=== PATIENT | male | born 2000 | race Hispanic/Latino ===

== ENCOUNTER → 2021-03-27 13:59 | Outpatient (CLI) | payer OTHER, MEDICAID, SELFPAY ==
--- NOTE | 2021-03-27 14:01 | DI.RAD.S_ITS ---
PROCEDURE: XR WRIST LT MIN 3V INDICATIONS: Wrist pain TECHNIQUE: 4 views of the wrist were acquired. COMPARISON: None. FINDINGS: Bones: No fractures. In the lateral view the ulna is displaced dorsally relative to the radius which could be due to dislocation versus obliquity at time of image acquisition.. No suspicious bony lesions. Scaphoid view: Scaphoid is intact. Soft tissues: No suspicious soft tissue calcifications. IMPRESSION: Possible distal radioulnar joint dislocation. Recommend correlation with clinical findings. Dictated by: Latoya Benavidez MD, PhD on 03/27/2021 at 13:23 Approved by: Latoya Benavidez MD, PhD on 03/27/2021 at 13:25
== END ==
PROVIDERS: Referring Provider Nurse Practitioner Family; Visit Provider Nurse Practitioner Family
DX: M25.532 Pain in left wrist (principal)
CPT/HCPCS: 73110

== ENCOUNTER 2023-10-09 16:51 | Emergency (ER) | payer OTHER, MEDICAID, SELFPAY ==
[2023-10-09 17:07] VITALS: BP 109/66; PULSE 87; RESP 16; TEMP 36.9; O2SAT 100; BMI 22.3
--- NOTE | 2023-10-09 17:23 | DI.US.S_ITS ---
PROCEDURE: US SCROTUM INDICATIONS: left testicular pain TECHNIQUE: Real-time scanning was performed of the scrotum and testicles, with image documentation. Color and pulse Doppler interrogation was performed of both testicles. COMPARISON: None. FINDINGS: Right: Testicle is normal in size at 3.9 x 2.6 x 2.3 cm, and homogenous in echotexture. Epididymis is normal in overall size and morphology. No hydrocele or varicoceles. Overlying scrotal skin is normal in thickness. Left: Testicle is normal in size at 4.0 x 2.4 x 2.8 cm, and homogeneous in echotexture. Epididymis is normal in overall size and morphology. No hydrocele or varicoceles. Overlying scrotal skin is normal in thickness. Doppler: Color and pulse Doppler demonstrate normal and symmetric arterial flow in both testicles. IMPRESSION: No sonographic evidence of testicular torsion. Approved by: Heidi Corea M.D.,Ph.D. on 10/09/2023 at 20:34
[2023-10-09 17:29] LABS: Appearance Urine UA CLEAR; Bilirubin Urine UA NEGATIVE (NEGATIVE); Color Urine UA YELLOW; Glucose Urine UA NEGATIVE (Negative); Ketones Urine UA NEGATIVE (NEGATIVE); Leukocyte Esterase Urine UA 3+ (NEGATIVE); Nitrite Urine UA NEGATIVE (Negative); Occult Blood Urine UA TRACE-INTACT (Negative); Protein Urine UA NEGATIVE (Negative); Specific Gravity Urine UA <=1.005 (1.000-1.035); Urobilinogen Urine UA 0.2 E.U./dL (0.2)
[2023-10-09 17:38] LABS: Bacteria Urine Occasional (0-1); Culture Indicated Urine Specimen Cultured; RBC Urine 0-1/HPF (0-5/HPF); Squamous Epithelial Cell Urine 0-1 /HPF (0-5/HPF); Urine Volume 10mL (spun); WBC Urine 10-30/HPF (0-5/HPF)
--- NOTE | 2023-10-09 18:01 | ED.MALEGU ---
HPI - Male Genitourinary General Chief complaint: Urogenital-Male Stated complaint: lft lower quadrant pain Time Seen by Provider: 10/09/23 18:01 Source: patient Mode of arrival: Ambulatory History of Present Illness HPI Narrative: 23-year-old male complains left testicular pain since noon today. He denies local trauma, but does admit that he has been fairly sexually active recently. No meatal discharge or dysuria or frequency of urination. He denies history of previous STIs, denies previous chlamydia and gonorrhea specifically. No previous scrotal or testicular problems. No history of kidney stones, no flank pain, fevers or chills. He has not tried any medications thus far for this problem. He has no discomfort in the left lower quadrant or left flank pain. He has not aware of any previous left inguinal or other ventral hernia, no bulge at inguinal area known, no scrotal fullness. MD Complaint: testicle pain Related Data Home Medications Medication Instructions Recorded Confirmed cetirizine 10 mg tablet (Zyrtec) 10 mg PO DAILY PRN 03/27/21 03/27/21 Previous Rx's Medication Instructions Recorded doxycycline monohydrate 100 mg 100 mg PO BID epididymitis 10 days 10/09/23 capsule #20 caps Allergies Allergy/AdvReac Type Severity Reaction Status Date / Time No Known Drug Allergies Allergy Unverified 03/27/21 13:50 Patient History Social History Smoking Status: Never smoker Smoking Status: Never smoker Exam Narrative Exam Narrative: GENERAL: Well-developed patient, in mild distress. HEAD: Atraumatic. Normocephalic. EYES: Pupils equal round and reactive. Extraocular motions intact. No scleral icterus. No injection or drainage. ENT: Nose without bleeding, purulent drainage. Throat without erythema, tonsillar hypertrophy or exudate. Airway patent. NECK: Trachea midline. Non tender CARDIOVASCULAR: Regular rate and rhythm without murmurs, gallops, or rubs. RESPIRATORY: Clear to auscultation. Breath sounds equal bilaterally. No wheezes, rales, or rhonchi. GASTROINTESTINAL: Abdomen soft, non-tender, nondistended.. : No enlargement of the left testis, some tenderness superiorly with normal lie, and axis, some tenderness along the epididymis on the left side. No obvious left groin inguinal hernia or scrotal mass, at rest or with Valsalva. No tenderness to the right epididymis or right testis. Scrotum skin not inflamed or red, without lesions. Uncircumcised male, no phimosis, no paraphimosis. No coronal lesions, no meatal discharge. No penile shaft lesions. No suprapubic area folliculitis or redness, no groin lymphadenopathy obvious. EXTREMITIES: No edema or joint tenderness. BACK: Nontender without deformity or crepitance. No flank tenderness. NEURO: AOx3. SKIN: No rash or erythema of visible areas Initial Vital Signs Initial Vital Signs: Vital Signs Temperature 98.4 F 10/09/23 17:07 Pulse Rate 87 10/09/23 17:07 Respiratory Rate 16 10/09/23 17:07 Blood Pressure 109/66 10/09/23 17:07 Pulse Oximetry 100 10/09/23 17:07 Oxygen Delivery Method Room Air 10/09/23 17:07 Course Orders Ordered: Discontinued Medications Doxycycline Hyclate (Doxycycline Hyclate 100 Mg Tablet) 100 mg PO NOW ONE Stop: 10/09/23 18:23 Last Admin: 10/09/23 18:32 Dose: 100 mg Documented By: KENYON Ketorolac Tromethamine (Ketorolac 30 Mg/Ml Vial) 30 mg IM NOW ONE Stop: 10/09/23 18:15 Last Admin: 10/09/23 18:18 Dose: 30 mg Documented By: KENYON Vital Signs Vital signs: Vital Signs - 8 hr 10/09/23 17:07 Temperature 98.4 F Pulse Rate 87 Respiratory Rate 16 Blood Pressure 109/66 Pulse Oximetry 100 Oxygen Delivery Method Room Air MDM - Male Genitourinary Medical Records Attestation: I reviewed the patient's medical records. Lab Data Attestation: I reviewed the patient's lab results. Labs: Lab Results 10/09/23 10/09/23 Range/Units 17:23 18:15 Urine Color Yellow Urine Appearance Clear Urine pH 7.0 (4.5-8.0) Ur Specific [place] <=1.005 (1.000-1.035) Urine Protein Negative (Negative) Urine Glucose (UA) Negative (Negative) g/dL Urine Ketones Negative (NEGATIVE) Urine Occult Blood Trace-intact (Negative) Urine Nitrate Negative (Negative) Urine Bilirubin Negative (NEGATIVE) Urine Urobilinogen 0.2 (0.2) E.U./dL Ur Leukocyte Esterase 3+ H (NEGATIVE) Urine RBC 0-1/hpf (0-5/HPF) Urine WBC 10-30/hpf H (0-5/HPF) Ur Squamous Epith Cells 0-1 /hpf (0-5/HPF) Urine Bacteria Occasional (0-1) (None) Ur Culture Indicated? Specimen cultured Vol Urine Centrifuged 10ml (spun) Ur Chlamydia DNA (PCR) Detected H N gonorrhoeae DNA (PCR) Not detected MDM Narrative Medical decision making narrative: 23-year-old male with left testicular pain, some tenderness epididymis, suspect epididymitis clinically, normal testicular lie on gross scrotal inspection. Scrotal ultrasound ordered not yet performed. Urinalysis shows some pyuria. Urine GC chlamydia requested. Urine culture requested. We will give oral dose doxycycline. IM Toradol. Ultrasound verbal report, no acute abnormalities, sono [facility] radiology report still pending. We will discharge patient on oral doxycycline, urine culture is pending, urine GC chlamydia still pending. Follow up with the Urology, contact information given for Dr. Xavier. Consider snug supportive briefs to wear next few days. Advised [id number] ibuprofen to use for pain control and follow up. Follow up with Urology. Return precautions discussed. Home with family 10/10/23@0440, LATE ENTRY: Urine chlamydia test resulted after discharge and was positive, urine GC test was negative, patient had been given doxycycline oral 1st dose prior, prescription for 10 day oral Doxy course. We will inform morning charge nurse, to contact patient about STI, to request his partners to be treated, to consider testing for other STIs, to use condom barium method until treated and repeat test negative. Discharge Plan Departure Patient Disposition: Home Clinical Impression: Pain in left testicle, Dislocation of left wrist Instructions: DI for Urinary Tract Infection (UTI) Activity Restrictions/Additional Instructions: Left testicular pain with recent increased sexual activity, consider local trauma as cause for left testicular discomfort. No obvious hernia on exam. Ultrasound showed no acute changes, good blood flow to that testis, without grossly obvious inflammatory change. However urinalysis did show inflammatory cells, possible urine infection, possible epididymitis as cause of prescription 10 day course of doxycycline for discharge. Further oral antibiotics sent to your pharmacy by electronic prescription. Follow up with urologist. Contact information for Dr. Xavier, call his office Thursday or Thursday for close follow up. Return to this/nearest emergency department for any change worsening symptoms or any concerns prior Prescriptions: New doxycycline monohydrate 100 mg capsule 100 mg PO BID 10 Days Qty: 20 0RF No Action cetirizine [Zyrtec] 10 mg tablet 10 mg PO DAILY PRN Referrals: Miscellaneous,Doctor, [Primary Care Provider] - Andrew Xavier MD [Physician] - Stand Alone Forms: Patient Portal/API
[2023-10-09] MEDS: KETOROLAC 30 MG/ML VIAL IM (18:18)
[2023-10-09] MEDS: DOXYCYCLINE HYCLATE 100 MG TABLET PO (18:32)
[2023-10-09 19:06] VITALS: RESP 18
[2023-10-09 20:21] LABS: Urine N gonorrhoeae NOT DETECTED
[2023-10-09 20:36] LABS: Urine Chlamydia DETECTED
== END 2023-10-09 19:07 | disposition home or self-care (01) ==
PROVIDERS: Emergency Medicine; Emergency Provider Emergency Medicine
DX: A74.9 Chlamydial infection, unspecified (principal); N50.812 Left testicular pain
CPT/HCPCS: 76870; 81001; 87086; 87491; 87591; 93975; 96372; 99283; 99284; J1885